=== PATIENT | male | born 1960 | race Caucasian/White ===

== ENCOUNTER 2023-09-18 13:28 | Emergency (ER) | payer OTHER ==
[2023-09-18 13:52] VITALS: BP 175/92; O2SAT 100
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
--- NOTE | 2023-09-18 14:39 | XRAY Report ---
PROCEDURE: Shoulder 2+V LT INDICATIONS: shoulder inj TECHNIQUE: 3 views of the shoulder were acquired. COMPARISON: None. FINDINGS: Bones: Mild to moderate glenohumeral and moderate clavicular degenerative changes. Slight deformity in the posterior humeral head, with cystic changes. Soft tissues: No suspicious calcifications. IMPRESSION: No acute fracture or dislocation. Moderate acromioclavicular and mild to moderate glenohumeral degene rative changes. Slight deformity with cystic changes at the posterior humeral head and greater tuberosity, possibly d ue to chronic tendinopathy and traction and/or prior dislocation. If there is high concern for further derangement, consider MRI evaluation. Reviewed by: Nick Lopez MD on 09/18/2023 2:37 PM PDT Approved by: Nick Lopez MD on 09/18/2023 2:37 PM PDT Station ID: [id number]
[2023-09-18] MEDS ORDERED: iohexoL-300 100 ML VIAL ONE (14:47)
--- NOTE | 2023-09-18 15:26 | CT Report ---
PROCEDURE: Thoracic Spine WO INDICATIONS: back inj TECHNIQUE: Noncontrast 3 mm thick sections acquired through the region of interest in the thoracic spine. Sagit allen and coronal reformats were then constructed. For radiation dose reduction, the following was used : automated exposure control, adjustment of mA and/or kV according to patient size. COMPARISON: None. FINDINGS: Image quality: Excellent. Bones: There is normal overall bony alignment. No acute vertebral body compression fractures. Fan Blade Truer shanthi appearing mild superior endplate anterior wedge compression deformity at T5 level is seen with up to 10% loss of T5 vertebral body height anteriorly. No suspicious sclerotic or lytic bony lesions. D egenerative endplate changes and decreased intervertebral disc height throughout thoracic spine is se en. Central spinal canal is of normal overall caliber. Soft tissues: No paravertebral masses or hematomas. Visualized posteromedial lungs appear clear. IMPRESSION: 1. Mild degenerative disc disease throughout thoracic spine. No acute compression fracture or spondyl olisthesis. No acute thoracic spine vertebral body fracture. Chronic appearing mild anterior wedge co mpression deformity involving superior endplate of T5 vertebral body with up to 10% loss of T5 verteb ral body height anteriorly. 2. No significant central canal stenosis or neural foraminal narrowing. No gross paraspinous soft tis una abnormalities. Reviewed by: Jad Key MD on 09/18/2023 3:25 PM PDT Approved by: Jad Key MD on 09/18/2023 3:25 PM PDT Station ID: [id number]
--- NOTE | 2023-09-18 15:27 | CT Report ---
PROCEDURE: Cervical Spine WO INDICATIONS: neck pain TECHNIQUE: Noncontrast 3 mm thick sections acquired from the skull base to the T4 level. Sagittal and coronal r eformats were then constructed. For radiation dose reduction, the following was used: automated exp osure control, adjustment of mA and/or kV according to patient size. COMPARISON: None. FINDINGS: Image quality: Excellent. Bones: No fractures or dislocations. There is straightening of normal cervical lordosis. Loss of di sc height and degenerative endplate changes are noted at C4-5 through C6-7 levels. Mild dorsal disc o steophyte complex formation at C5-6 level is seen causing mild central canal stenosis, no significant neural foraminal narrowing. Visualized superior ribs are intact. Soft tissues: Prevertebral soft tissues are normal in thickness. No paravertebral hematomas. No ap ical pneumothoraces. IMPRESSION: No acute, displaced fracture or traumatic subluxation. Mild to moderate degenerative disc disease throughout cervical spine most notably at C5-6 level as ab ove. Reviewed by: Jad Key MD on 09/18/2023 3:26 PM PDT Approved by: Jad Key MD on 09/18/2023 3:26 PM PDT Station ID: [id number]
== END 2023-09-18 15:52 | disposition home or self-care (01) ==
LOC: ED 13:28
DX: S22.050A Wedge compression fracture of T5-T6 vertebra, initial encounter for closed fracture (principal); S19.9XXA Unspecified injury of neck, initial encounter; M67.912 Unspecified disorder of synovium and tendon, left shoulder; V43.62XA Car passenger injured in collision with other type car in traffic accident, initial encounter; Y92.411 Interstate highway as the place of occurrence of the external cause; E11.9 Type 2 diabetes mellitus without complications; Z79.84 Long term (current) use of oral hypoglycemic drugs
CPT/HCPCS: 72125; 72128; 73030; 99284; Q9967

== ENCOUNTER 2023-11-14 15:04 | Outpatient (CLI) | payer OTHER ==
--- NOTE | 2023-11-15 18:09 | XRAY Report ---
PROCEDURE: Shoulder 1V LT INDICATIONS: SHOULDER PAIN TECHNIQUE: 3 views of the shoulder were acquired. COMPARISON: Left shoulder radiograph on September 17, 2013. FINDINGS: Bones: No fractures or dislocations. Moderate acromioclavicular and mild glenohumeral joint space na rrowing and juxta-articular osteophytosis. Similar appearance of deformity and cystic changes in the superolateral aspect of the humeral head/greater tuberosity No suspicious bony lesions. Visualized r ibs appear intact. Soft tissues: No suspicious soft tissue calcifications. The visualized lungs are within normal limi ts. IMPRESSION: 1.No acute bony abnormality. If clinical symptoms persist, consider cross-sectional imaging for furth er evaluation. 2.Moderate acromioclavicular and mild glenohumeral joint osteoarthritis. 3.Similar appearance of deformity and cystic changes in the superolateral aspect of the humeral head/ greater tuberosity which may be secondary to prior dislocation versus tendinopathy. Reviewed by: Lucia Bertradn MD on 11/15/2023 6:07 PM PDT Approved by: Lucia Bertrand MD on 11/15/2023 6:07 PM PDT Station ID: [id number]
== END 2023-11-14 15:05 | disposition home or self-care (01) ==
LOC: DI 15:04
PROVIDERS: ATTEND Physician Assistant Surgical
DX: M19.012 Primary osteoarthritis, left shoulder (principal)

== ENCOUNTER 2024-02-16 12:46 | Outpatient (CLI) | payer OTHER ==
--- NOTE | 2024-02-17 12:43 | XRAY Report ---
Ankle 3+V RT HISTORY: 63 years of age, PAIN OF RIGHT ANKLE TECHNIQUE: Ankle 3+V RT COMPARISON: None. FINDINGS/IMPRESSION: Small posterior calcaneal enthesophyte. No acute fracture or dislocation. Joint spaces are well maint ained. Mild bimalleolar soft tissue swelling. Reviewed by: Evette Zamora MD on 02/17/2024 12:42 PM PDT Approved by: Evette Zamora MD on 02/17/2024 12:42 PM PDT Station ID: [id number]
--- NOTE | 2024-02-17 12:45 | XRAY Report ---
Foot 1-2V RT HISTORY: 63 years of age, PAIN OF RIGHT ANKLE TECHNIQUE: Foot 1-2V RT COMPARISON: None. FINDINGS/IMPRESSION: Ossification about the base of the fifth metatarsal, representing prior injury. Small plantar calcane us enthesophyte. No acute fracture or dislocation. Joint spaces are well maintained. Reviewed by: Evette Zamora MD on 02/17/2024 12:44 PM PDT Approved by: Evette Zamora MD on 02/17/2024 12:44 PM PDT Station ID: [id number]
== END 2024-02-16 12:47 | disposition home or self-care (01) ==
LOC: DI.N 12:46
PROVIDERS: ATTEND Physician Assistant
DX: M77.31 Calcaneal spur, right foot (principal); R93.6 Abnormal findings on diagnostic imaging of limbs; R93.89 Abnormal findings on diagnostic imaging of other specified body structures